=== PATIENT | female | born 1995 | race Caucasian/White ===

== ENCOUNTER → 2018-06-11 | Outpatient (CLI) | payer OTHER ==
--- NOTE | 2018-06-11 15:56 | US ---
EXAM DESCRIPTION: Pelvis Transvaginal: Ultrasound. CLINICAL HISTORY: RIGHT LOWER QUADRANT PAIN. LMP 05/27/2018. 0. No HRT. COMPARISON: None. TECHNIQUE: Endovaginal scanning; Osorio-scale and Doppler modes. FINDINGS: Uterus 7.3 x 3.7 x 3.2 cm. Endometrial thickness is 9.3 mm. Myometrium appears homogeneous. Uterus anteverted. Cervix unremarkable. Cul-de-sac contains no fluid. Right ovary 3.6 x 2.7 x 2.1 cm. Normal color and waveform Doppler vascularity. 1.7 cm cyst. No adnexal mass or free fluid. Left ovary 2.9 x 2.1 x 1.5 cm. Normal color and waveform Doppler vascularity. Small follicles but no cysts. No adnexal mass or free fluid. IMPRESSION: 1. 1.7 cm cyst in the right ovary. No further imaging follow-up is recommended. Normal size and vascularity of the ovary. Small follicles in the left ovary with normal size and vascularity. 2. Normal size and position of uterus. No endometrial thickening. No endometrial fluid. No fluid in the cul-de-sac. Electronically signed by: Micky Nagy MD 06/11/2018 3:54 PM CDT
== END ==
LOC: LAB.O 11:03
PROVIDERS: ATTEND Nurse Practitioner Family
DX: R10.31 Right lower quadrant pain (principal); N83.201 Unspecified ovarian cyst, right side